=== PATIENT | male | born 1975 ===

== ENCOUNTER → 2017-01-14 09:38 | Day surgery (SDC) | payer OTHER ==
[~2017-01-14 09:38] MED LIST: Bupivacaine 0.5% SDV PF* 30 ML VIAL ONE; HYDROcodone/ACETAMIN 5-325 MG* 1 TAB ONE; HYDROcodone/ACETAMIN 5-325 MG* 1 TAB PO PRN; Ketorolac INJ* 30 MG/ML 1 ML VIAL IV PRN; Ketorolac INJ* 30 MG/ML 1 ML VIAL ONE; Lidocaine 2% PF* 5 ML VIAL ONE; Propofol* 10 MG/ML 20 ML BTL IV PUSH ONE; ceFAZolin 2 GM PREMIX(*) 2 GM/50 ML BAG IVPB ONE; fentaNYL* 50 MCG/ML 2 ML VIAL (100 MCG VIAL) IV PRN; fentaNYL* 50 MCG/ML 2 ML VIAL (100 MCG VIAL) ONE
[2017-01-14 12:27] VITALS: BP 117/72
--- NOTE | 2017-01-15 02:18 | OP ---
DATE OF OPERATION: 01/14/17 [facility] DATE OF : 79 SURGEON: Mercy Valera MD [facility] SPECIALIST: SERENA Foster ANESTHESIOLOGIST: Chong Merino MD ANESTHESIA: General. PRE-OP DIAGNOSIS: Right index finger metacarpal fracture. POST-OP DIAGNOSIS: Right index finger metacarpal fracture. OPERATIVE PROCEDURE: Open reduction internal fixation of right index finger metacarpal. ESTIMATED BLOOD LOSS: Zero. TOURNIQUET TIME: About 40 minutes. INDICATIONS: Bobby is a 41-year-old male who crushed his hand in a gate at the intermediate about 3 weeks ago. He has a displaced fracture of his second metacarpal, presents for ORIF. DESCRIPTION OF PROCEDURE: The patient was brought to the operating room, given a general anesthetic, and placed in the supine position on the operating table with a tourniquet around his right forearm. The skin of his right hand and forearm was prepped and draped in the usual sterile fashion. The hand and forearm were exsanguinated and the tourniquet elevated to 250 mmHg. A longitudinal incision was made over the dorsal aspect of the second metacarpal and we dissected bluntly through the subcutaneous tissue. The extensor tendons were retracted ulnarly and then the periosteum incised. The fracture fragments were carefully dissected apart and then reduced and secured with three 2.0 mm lag screws from dorsal to volar. The position of the hardware and fracture fragments were checked on the C-arm in the AP and lateral views and found to be satisfactory, and clinically the finger was well aligned. The wound was irrigated. The periosteum was repaired over the fracture site with 4-0 Polysorb suture. Skin edges were reapproximated with 4-0 nylon suture. The wound was dressed with Xeroform, 4x4, Webril and a volar splint. The patient tolerated the procedure well, and was brought to the recovery room in good condition. [id number]/[facility] #: [id number] [facility] MEDICAL CENTERStacey
--- NOTE | 2017-01-15 15:52 | RAD ---
INDICATION: Right index finger fracture reduction. COMPARISON: There are no prior studies available for comparison. TECHNIQUE: 48 seconds of intermittent fluoroscopic guidance were provided and 3 spot films of the right hand were obtained in the operating room. FINDINGS: There is a fracture of the distal second metacarpal transfixed with 2 surgical screws. IMPRESSION: INTRAOPERATIVE CONTROL FILMS. CPT II Codes: [id number]
== END | disposition home or self-care (01) ==
LOC: OREAST 09:38
PROVIDERS: ATTEND Orthopaedic Surgery
DX: S62.320A Displaced fracture of shaft of second metacarpal bone, right hand, initial encounter for closed fracture (principal); F17.200 Nicotine dependence, unspecified, uncomplicated
CPT/HCPCS: 76000; C1713; J0690; J1885; J2704; J3010